=== PATIENT | female | born 1960 | race Caucasian/White ===

== ENCOUNTER → 2022-11-03 | Outpatient (CLI) | payer MEDICAID, SELFPAY ==
[2022-11-03 14:51] LABS: BNP,B-Type NATRIURETIC PEPTIDE 38.7 pg/mL (0-100)
== END | disposition home or self-care (01) ==
DX: R60.0 Localized edema (principal)
CPT/HCPCS: 83880

== ENCOUNTER 2022-11-30 08:47 | Outpatient (RCR) | payer MEDICAID, SELFPAY ==
[2022-11-30 09:17] VITALS: BP 148/69; PULSE 114; RESP 16; TEMP 36; BMI 28.7
--- NOTE | 2022-11-30 09:41 | WC ---
PER PT, SHE TAKES NO MEDS.
--- NOTE | 2022-11-30 12:38 | HP.PCM_ITS ---
History of Present Illness Date of Service: 11/30/22 Chief Complaint: Bilateral lower extremity ulcers History of Wound: is a 62-year-old who presents to the wound center due to nonhealing bilateral lower extremity ulcers. She believes that it started in September. No known precipitating factor. 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 She has had some seepage from the openings but did not keep it covered. She also states that her dogs come in contact with openings quite often. She was following up with her Nurse Practitioner, placed on some diuretics and has had some labs done. Has also been on some other medications without any significant improvement. She reports a history of borderline diabetes and she vapes's. Chronic bilateral lower extremity pain not worse than it has been. No chills, fever or otherwise feeling of unwell. [facility] Medical History (Updated 11/30/22 @ 12:[address] Sakshi Mcclure MD) Borderline type 2 diabetes mellitus Debility Ulcer of left lower extremity with fat layer exposed Ulcer of right lower extremity with fat layer exposed Venous insufficiency of both lower extremities Home Medications No Known/Unobtainable [No Known Home Medications] 07/20/17 [History Last Taken Unknown] Allergy/AdvReac Type Severity Reaction Status Date / Time codeine AdvReac Itching Verified 11/30/22 09:41 Social History Smoking Status: Current every day smoker ROS Constitutional Constitutional: Denies excessive sweating, fever(s), headache(s), night sweats or poor appetite Eyes Eyes: Denies burning, decreased night vision, discharge from eye(s), double vision, dry eyes, excessive blinking, exophthalmos or eye pain ENT HEENT: Denies halitosis, headache(s), hearing loss, hoarseness, lip swelling, mouth pain or mucositis Cardiovascular Cardiovascular: Reports edema, leg edema and leg ulcers; Denies claudication, cold extremities, diaphoresis, dizziness or pale mercado skin Respiratory/Chest Respiratory/Chest: Denies dry cough, dusky skin, excessive phlegm production, hemoptysis, hoarseness or inability to speak Gastrointestinal Gastrointestinal: Denies anorexia, chewing difficulty, coffee ground emesis, dry heaves, early satiety or hematemesis Genitourinary Genitourinary: Denies dysuria, flank pain or hematuria Musculoskeletal Musculoskeletal: Reports back pain, difficulty walking, extremity pain and joint pain; Denies tremors Integumentary Integumentary: Reports skin ulcer; Denies change in hair, furuncle, jaundice, nail changes or pruritus Neurologic Neurologic: Denies behavior changes, burning sensations, convulsions, disequilibrium, dizziness, focal weakness, memory loss or numbness Psychiatric Psychiatric: Denies auditory hallucinations, behavioral changes, cognitive impairment, hallucinations, homicidal ideation, hopelessness, irritability or memory loss Endocrine Endocrinology: Denies change in body appearance, deepening of the voice, excessive sweating, heat intolerance or increase in ring/shoe/hat size Vital Signs Vital Signs Vital Signs: 11/30/22 09:17 Temperature 96.8 F L Temperature Source Temporal Pulse Rate 114 H Respiratory Rate 16 Blood Pressure 148/69 H Blood Pressure Mean 95 Blood Pressure Source Monitor Blood Pressure Position Sitting Blood Pressure Location Left Arm Oxygen Delivery Method Room Air Weight Weight: 178 lb Body Mass Index (BMI) 28.7 Physical Exam Const alert, oriented x3 and no apparent distress General Appearance: cooperative and comfortable HEENT normocephalic, head/scalp atraumatic and hearing grossly normal bilaterally Eyes EOMs intact bilaterally Neck full ROM and supple General: normal visual inspection Resp normal respiratory effort and normal air movement Effort and Inspection: able to speak in complete sentences Cardio regular rate, regular rhythm, S1 normal heart sound and S2 normal heart sound GI soft to palpation and non-tender Extremity General Extremity: edema Skin General Skin Exam: erythema Wounds: wounds noted Neuro oriented x3, CN's II-XII intact bilaterally and moves all extremities Psych mental status grossly normal, thought process normal, cooperative and affect normal Debridement Note Debridement Note Wound debrided: Right lower extremity cluster Type of Debridement: Excisional debridement Anesthesia Used: 4% Lidocaine Solution Depth: Down to and including healthy tissue and in the subcutaneous layer Percentage of wound debrided: 100 Instrument Used: 7mm curette, #15 blade and Forceps Tissue Removed: Slough and devitalized tissue Severity: Fat Layer Exposed Amount of bleeding with debridement: Mild Bleeding Controlled with: Pressure Patient tolerated procedure: Patient tolerated procedure well Post-Debridement Measurements and Additional Note: Post-Debridement Measurements/Treatment CANDE - Nurse 1 - General Ulcer Assessment Start: 11/30/22 09:09 Freq: Status: Active Protocol: CHELSI Activity Type Activity Date Activity User E-sign Co-sign Detail Recorded Client Recorded Date Recorded By Document 11/30/22 09:17 [facility] [id number] 11/30/22 09:36 [facility] 11/30/22 09:17 WC - Today's Visit Information Type of service Initial Visit Arrival Mode Ambulatory Transfer Assistance None Patient Identification Verified (Name & Yes ) Patient Requires Transmission-Based No Precautions Height and Weight Height 5 ft 6 in Weight 178 lb Weight in Pounds 178.0 lbs Weight Measurement Method Estimated by Patient Body Mass Index (BMI) 28.7 BMI Classification Overweight BSA - Danilo 1.90 Vital Signs Temperature (97.8 F-99.1 F) 96.8 F L Temperature Source Temporal Pulse Rate (60-100) 114 H Pulse Location Monitor Respiratory Rate (12-18) 16 Respiratory rate source Observation Oxygen Delivery Method Room Air Blood Pressure (90/60-120/80) 148/69 H Blood Pressure Mean 95 Source Monitor Position Sitting Blood Pressure Location Left Arm History Since Last Visit- (Skip if this is Patient's initial visit) Left Footwear Regular Shoe Right Footwear Regular Shoe Pain Scale: 0-10 Numeric Is Patient Pain Free? Yes Lower Extremity Assessment/ Foot Assessment/ Toe Nail Assessment Right -Posterior Tibial Doppler Multiphasic -Dorsalis Pedis Doppler Multiphasic -Extremity Color Red, Hyperpigmented -Hair Growth on Legs Yes -Hair Growth on Toes No -Temperature of Extremity Warm -Capillary Refill Less than 3 Seconds -Thick Yes -Discolored Yes -Deformed Yes Left -Lower Extremity Comment (If N/A Above PAINFUL TO ) DOPPLER L POST TIB D/T NEARBY WOUND. -Posterior Tibial Doppler Inaudible -Dorsalis Pedis Doppler Monophasic -Extremity Color Red, Hyperpigmented -Hair Growth on Legs Yes -Hair Growth on Toes No -Temperature of Extremity Warm -Capillary Refill Less than 3 Seconds -Other Deformity No -Prior Foot Ulcer No -Charcot Joint No -Prior Amputation No -Thick Yes -Discolored Yes -Deformed Yes -Improper Length & Hygeine Yes Communication Assessment Preferred language Georgian [employer] Machine [employer]er Required No Able to Read Yes Able to Write Yes Communication Tools None Right Hearing Abillity Normal Left Hearing Abillity Normal Visual Assistive Devices Glasses Teaching Assessment Preferences Verbal,Written, Audio/Visual, Demonstration Barriers to Learning None Readiness To Learn Excellent Willingness to Engage in Self Management High Activies Readiness to Engage in Self Management High Activities Anxiety Level Calm Cooperation Cooperative Perception Coherent Interest in Health Problem Asks Questions Education Importance Acknowledges Need Does Patient Smoke tobacco or other Yes substances Smoking Status Current every day smoker Is Patient Diabetic No Functional Assessment Recent Decline in Ability to Perform Denies Any Declines Culture/Congregation/[place] Cultural/Congregation Needs that may affect No Treatment Plan Teaching: Wound Center *Welcome to the Wound Center -Person Taught Patient -Teaching Method Discussion -Response to teaching Verbalize understanding Welcome to the Wound Care Center Georgian WC - Nurse 1 - General Ulcer Measurement Start: 11/30/22 09:09 Freq: Status: Active Protocol: Activity Type Activity Date Activity User E-sign Co-sign Detail Recorded Client Recorded Date Recorded By Document 11/30/22 09:17 [facility] [id number] 11/30/22 09:36 [facility] 11/30/22 09:17 Wound Center Nurse 1 #3- L MED ANKLE CLUSTER -Combined with other wound No -Current Size (cm) - Length 3 -Current Size (cm) - Width 9.5 -Current Size (cm) - Depth 0.1 -Total Square Cm 28.5 -Date of Last Picture (Recall this 11/30/22 field) -Photo Taken Yes -Epithelialization None Present -Tunneling No -Undermining/Tunneling No -Circular Undermining No -Exudate Amt Large -Exudate Type Serosanguineous -Wound Margin Distinct, Outline Attached -Granulation Amt None Present (0 %) -Slough/Fibrin Yes -Necrosis Amt Large (67-100%) -Necrotic Tissue Type Adherent Slough -Texture (Nasrin-wound Skin Appearance) Assessed, Excoriation, Scarring -Moisture (Nasrin-wound Skin Appearance) Assessed, Maceration -Color (Nasrin-wound Skin Appearance) Assessed, Erythema -Temperature (Nasrin-wound Skin No Abnormality Appearance) (Pt Warm) -Tenderness on Palpation (Nasrin-wound No Skin Appearance) -Ulcer Cleansing Soap and Water -Foul Odor after Cleansing No -Anesthetic Used 4% Lidocaine Solution #2- LLE CIRCUMFERENTIAL -Combined with other wound No -Current Size (cm) - Length 17 -Current Size (cm) - Width 28.5 -Current Size (cm) - Depth 0.1 -Total Square Cm 484.5 -Date of Last Picture (Recall this 11/30/22 field) -Photo Taken Yes -Epithelialization None Present -Tunneling No -Undermining/Tunneling No -Circular Undermining No -Exudate Amt Large -Exudate Type Serosanguineous -Wound Margin Distinct, Outline Attached -Granulation Amt Medium (34-66%) -Granulation Quality [place] -Slough/Fibrin Yes -Necrosis Amt Large (67-100%) -Necrotic Tissue Type Adherent Slough -Texture (Nasrin-wound Skin Appearance) Assessed, Excoriation, Scarring -Moisture (Nasrin-wound Skin Appearance) Assessed, Maceration -Color (Nasrin-wound Skin Appearance) Assessed, Erythema -Temperature (Nasrin-wound Skin No Abnormality Appearance) (Pt Warm) -Tenderness on Palpation (Nasrin-wound Yes Skin Appearance) -Ulcer Cleansing Soap and Water -Foul Odor after Cleansing No -Anesthetic Used 4% Lidocaine Solution #1- RLE CIRCUMFERENTIAL -Combined with other wound No -Current Size (cm) - Length 18.5 -Current Size (cm) - Width 31 -Current Size (cm) - Depth 0.1 -Total Square Cm 573.5 -Date of Last Picture (Recall this 11/30/22 field) -Photo Taken Yes -Epithelialization None Present -Tunneling No -Undermining/Tunneling No -Circular Undermining No -Exudate Amt Large -Exudate Type Serosanguineous -Wound Margin Distinct, Outline Attached -Granulation Amt Medium (34-66%) -Granulation Quality [place] -Necrosis Amt Large (67-100%) -Necrotic Tissue Type Adherent Slough -Texture (Nasrin-wound Skin Appearance) Assessed, Excoriation, Scarring -Moisture (Nasrin-wound Skin Appearance) Assessed, Maceration, Weeping -Color (Nasrin-wound Skin Appearance) Assessed, Erythema -Temperature (Nasrin-wound Skin No Abnormality Appearance) (Pt Warm) -Tenderness on Palpation (Nasrin-wound Yes Skin Appearance) -Ulcer Cleansing Soap and Water -Foul Odor after Cleansing No -Anesthetic Used 4% Lidocaine Solution Right Calf (cm) 39.8 Right Ankle (cm) 26.2 Right Foot (cm) 44.5 Left Calf (cm) 27.5 WC - Nurse 2 - General Ulcer CM Notes Start: 11/30/22 09:09 Freq: Status: Active Protocol: Activity Type Activity Date Activity User E-sign Co-sign Detail Recorded Client Recorded Date Recorded By Document 11/30/22 09:50 MW [id number] 11/30/22 10:13 MW 11/30/22 09:50 Wound Center Nurse 2 #3- L MED ANKLE CLUSTER -Time 09:51 -Correct Patient Yes -Correct Side, Site, Position Yes -Correct Procedure Yes -Procedure Performed No -Tunneling No #2- LLE CIRCUMFERENTIAL -Time 09:54 -Correct Patient Yes -Correct Side, Site, Position Yes -Correct Procedure Yes -Procedure Performed Yes -Type of Procedure Debridement -Clinical Debridement Subcutaneous -Tissue Removed Subcutaneous -Post Debridement (cm) - Length 13.0 -Post Debridement (cm) - Width 25.0 -Post Debridement (cm) - Depth 0.2 -Total Square (Post) (cm) 325.00 -Area of Debridement (cm) - Length 13.0 -Area of Debridement (cm) - Width 25.0 -Total Square (Area) (cm) 325.00 -Tunneling No -Undermining/Tunneling No -Circular Undermining No -Wound/Ulcer Outcome Not Healed -Ulcer Cleansing Rinsed/ Irrigated with Saline -Foul Odor after Cleansing No -Bleeding Controlled with Pressure -Treatment Response Procedure Tolerated Well -Offloading No -Debridement - Subq, 1st 20sq cm No #1- RLE CIRCUMFERENTIAL -Time 09:53 -Correct Patient Yes -Correct Side, Site, Position Yes -Correct Procedure Yes -Procedure Performed Yes -Type of Procedure Debridement -Clinical Debridement Subcutaneous -Tissue Removed Subcutaneous -Post Debridement (cm) - Length 16.0 -Post Debridement (cm) - Width 24.0 -Post Debridement (cm) - Depth 0.2 -Total Square (Post) (cm) 384.00 -Area of Debridement (cm) - Length 16.0 -Area of Debridement (cm) - Width 24.0 -Total Square (Area) (cm) 384.00 -Tunneling No -Undermining/Tunneling No -Circular Undermining No -Wound/Ulcer Outcome Not Healed -Ulcer Cleansing Rinsed/ Irrigated with Saline -Foul Odor after Cleansing No -Bioengineered Tissue No -Bleeding Controlled with Pressure -Treatment Response Procedure Tolerated Well -Offloading No -Debridement - Subq, 1st 20sq cm Yes Pain Scale: 0-10 Numeric Is Patient Pain Free? Yes WC - Nurse 3 - General Ulcer D/C NN Start: 11/30/22 09:09 Freq: Status: Active Protocol: Activity Type Activity Date Activity User E-sign Co-sign Detail Recorded Client Recorded Date Recorded By Document 11/30/22 10:39 BMF [id number] 11/30/22 10:41 BMF Edit Result 11/30/22 10:39 BMF (1) [id number] 11/30/22 10:47 BMF (1) #3- L MED ANKLE CLUSTER - Aquacel AG 4x4 4 => 8 - Optilok 8x12 2 => 4 11/30/22 10:39 Wound Care Center Nurse 3 #3- L MED ANKLE CLUSTER -Ulcer Cleansing Soap and Water -Foul Odor after Cleansing No -Primary Dressing Applied Aquacel AG 4x4, Optilok 8x12 -Primary Dressing Covered/Secured with Dry Gauze & Roll Gauze, Secured with Tape -Aquacel AG 4x4 8 -Optilok 8x12 4 #2- LLE CIRCUMFERENTIAL -Ulcer Cleansing Soap and Water -Foul Odor after Cleansing No -Primary Dressing Applied Aquacel AG 4x4, Optilok 8x12 -Primary Dressing Covered/Secured with Dry Gauze & Roll Gauze, Secured with Tape -Aquacel AG 4x4 0 -Optilok 8x12 0 #1- RLE CIRCUMFERENTIAL -Ulcer Cleansing Soap and Water -Foul Odor after Cleansing No -Primary Dressing Applied Aquacel AG 4x4, Optilok 8x12 -Aquacel AG 4x4 0 -Optilok 8x12 0 Treatment Response Procedure Tolerated Well Pain Scale: 0-10 Numeric Is Patient Pain Free? Yes WC - Visit Discharge Discharge Condition Stable Ambulatory Status Ambulatory,Cane Transportation Private Auto Additional Wound Wound debrided: Left lower extremity ( cluster ) Type of Debridement: Excisional debridement Anesthesia Used: 4% Lidocaine Solution Depth: Down to and including healthy tissue and in the subcutaneous layer Percentage of wound debrided: 100 Instrument Used: 5mm curette, 7mm curette, #15 blade and Forceps Tissue Removed: Slough and devitalized tissue Severity: Fat Layer Exposed Amount of bleeding with debridement: Mild Bleeding Controlled with: Pressure and Compression and gauze Patient tolerated procedure: Patient tolerated procedure well Charges/Coding Visit Charges Office Visits / Consults: [id number] OV L4 New Procedures Integumentary [id number]: [id number] Andria subq tissue 20 sq cm/< Add On Codes: [id number] Andria subq tissue add-on (x 35, additional square centimeter debrided, please refer to clinical note.) Assessment/Plan Assessment/Plan (1) Ulcer of left lower extremity with fat layer exposed: CODE(S): L97.922 - Non-pressure chronic ulcer of unspecified part of left lower leg with fat layer exposed (2) Ulcer of right lower extremity with fat layer exposed: CODE(S): L97.912 - Non-pressure chronic ulcer of unspecified part of right lower leg with fat layer exposed (3) Venous insufficiency of both lower extremities: CODE(S): I87.2 - Venous insufficiency (chronic) (peripheral) (4) Borderline type 2 diabetes mellitus: CODE(S): R73.03 - Prediabetes (5) Debility: CODE(S): R53.81 - Other malaise PLAN: Plan Debridement done as documented above, procedure tolerated for the most part. Significant slough bilaterally. Also significant bilateral lower extremity edema and drainage. Had no form of wound care since September. She states that she has been following up with her primary care provider and was put on diuretics with no significant improvement. Debridement done however still a good amount of slough. Patient in pain so debridement stopped. No cultures taken today, will attempt culture at next visit. Has had recent blood work done by her primary care provider, will request records and add additional labs if needed. Aquacel Ag to all ulcers, cover with superabsorbent dressing. Change daily to twice daily depending on drainage. She looks much older than her stated age and I am not sure she will be able to care for her wounds as well, order for home health placed. Optimal diabetes control, double layer Tubigrip for edema management, leg elevation and exercise as tolerated. Vitamin C, D and zinc also discussed, she voiced understanding. Follow-up for nurse visit in a week and with me in 2 weeks. Her questions were answered and she was advised to call if she has any further questions or concerns, she voiced understanding. This note was generated with [employer] software. It may contain incorrect words, spelling, and punctuation that were not noted in checking the note before signing.
--- NOTE | 2022-12-26 14:53 | WC ---
11/30/22 [facility] Initial
--- NOTE | 2022-12-26 14:54 | WC ---
11/30/22 [facility] Initial
--- NOTE | 2022-12-26 14:55 | WC ---
11/30/22 [facility] Initial
== END 2022-12-08 23:59 | disposition home or self-care (01) ==
LOC: WC 08:47
PROVIDERS: Visit Provider Internal Medicine
DX: L97.912 Non-pressure chronic ulcer of unspecified part of right lower leg with fat layer exposed (principal); L97.922 Non-pressure chronic ulcer of unspecified part of left lower leg with fat layer exposed; R53.81 Other malaise; F17.200 Nicotine dependence, unspecified, uncomplicated; I87.2 Venous insufficiency (chronic) (peripheral); M79.604 Pain in right leg; M79.605 Pain in left leg; R73.03 Prediabetes; G89.29 Other chronic pain; L90.5 Scar conditions and fibrosis of skin
CPT/HCPCS: 11042; 11045; 99213; G0463

== ENCOUNTER 2022-12-25 21:34 | Emergency (ER) | payer MEDICAID, SELFPAY ==
[2022-12-25 21:35] VITALS: BP 51/17
[2022-12-25 21:37] VITALS: TEMP 35.8; BMI 26.1
[2022-12-25 22:02] VITALS: BP 123/91; BP 51/17; RESP 16; RESP 6; O2SAT 94
--- NOTE | 2022-12-25 22:15 | EX.ED.DYSGE1 ---
HPI History of Present Illness Chief Complaint: Wound Informant: spouse/S.O., friend and EMS Onset/Context/Timing Onset: Days Context: Gradual Onset Timing: Continuous Current Severity: Severe Maximum Severity: Severe Narrative Narrative: 62-year-old female per the no past medical history on the history on the computer says she had a history of being diabetic. Per the via phone states she been sick for a week with nausea and vomiting. She kept getting weaker. Had not been recently hospitalized. Tonight she got to the point where she was unable to ambulate and he called squad. In route prior to the squad getting here they said initially she was speaking. Then she became unresponsive and she developed an abnormal cardiac rhythm. On arrival she has a sine wave. Patient was taken immediately to room 2. I was called in the room from seeing another patient. Patient was unresponsive. Nurses were unable to obtain any IV. We started CPR. Prior similar symptoms: No Recent Illness/Hospitalization: No PFSH PFS Medical History Borderline type 2 diabetes mellitus Debility Ulcer of left lower extremity with fat layer exposed Ulcer of right lower extremity with fat layer exposed Venous insufficiency of both lower extremities Home Medications No Known/Unobtainable [No Known Home Medications] 07/20/17 [History Last Taken Unknown] Allergy/AdvReac Type Severity Reaction Status Date / Time codeine AdvReac Itching Verified 12/25/22 21:35 Social History Smoking Status: Current every day smoker ROS ROS ED ROS Narrative Nausea and vomiting. Dark stool. Review of Systems ROS Unobtainable: Denies due to encephalopathy Constitutional Constitutional ED: Denies chills or fever(s) Eyes Eyes: Denies blurry vision ENT ENT ED: Denies ear pain Cardiovascular Cardiovascular: Denies chest pain Respiratory/Chest Respiratory/Chest: Denies cough or dyspnea Gastrointestinal Gastrointestinal: Reports melena; Denies abdominal pain Genitourinary Genitourinary ED: Denies dysuria Musculoskeletal Musculoskeletal: Denies arthralgias Integumentary Denies abscess Neurologic Neurologic: Denies headache(s) Endocrine Endocrinology: Denies cold intolerance Hematologic/Lymphatic Hematologic/Lymphatic: Reports none Allergic/Immunologic Allergic/Immunologic ED: Denies mouth swelling or tongue swelling EXAM Physical Exam Narrative Exam Narrative: 62-year-old female unresponsive. No palpable carotid or femoral pulse. Patient with agonal breathing. Unresponsive. Clinically looks ill. H EENT exam pupils are 3 mm bilaterally. Extremely dry mucous membranes. False teeth which are being removed. Neck nontender no lymphadenopathy. No JVD. Lungs with bagging coarse breath sounds in the bases. Heart PEA on the monitor with no pulses. Abdomen soft nondistended. Patient is covered with stool around her waist, external region in both lower extremities. Neurologically she is unresponsive. She is not moving her extremities. Const Vital Signs: 12/25/22 21:37 Temperature 96.5 F L Temperature Source Temporal Positive well nourished, well developed and unkempt; Negative for cachectic or contractures General Appearance ED: unkempt, well developed and pallor; Negative for cachectic, contractures, cyanotic, diaphoretic or NAD Nutritional Appearance: Negative for cachectic HEENT Reports dry mucous membranes Negative for trauma or tenderness Mouth ED: Yes dry mucous membranes Mouth: dry mucous membranes Eyes PERRL; Negative for EOMs intact bilaterally General Eye ED: Yes pale conjunctiva; Negative for scleral icterus Neck no lymphadenopathy, supple and no JVD General: Negative for tenderness Lymph Lymphatic: Negative for other Chest Wall inspection of chest normal and palpation of chest normal Resp No normal respiratory effort and No clear to auscultation bilaterally Resp Narrative: No respiratory effort. Intubated. Coarse breath sounds bilaterally. Effort and Inspection: Negative for retractions Auscultation: Negative for rales, rhonchi, wheezes or diminished lung sounds Cardio Negative for regular rate, regular rhythm, S1 normal heart sound, S2 normal heart sound or no murmurs Rate: other Other Details: PEA on the monitor. No palpable pulses. Rhythm: abnormal rhythm GI normal to inspection, nondistended, normoactive bowel sounds, non-tender, non-distended and no masses Inspection: Negative for abdominal distention Auscultation: Negative for normoactive bowel sounds Palpation: soft; Negative for tender or guarding Extremity Negative for normal to inspection Extremity Narrative: Wounds both lower extremities. 1+ pitting edema in the lower legs. Stool in her legs. No spontaneous movements. Neuro Neuro Narrative: Unresponsive to verbal or noxious stimuli. Psych Appearance: unkempt Skin no rashes or lesions noted Skin Narrative: Wounds on the lower extremities. Pale. Cool to the touch. General Skin Exam: pallor Wounds: wounds noted MDM MDM MDM Narrative Medical decision making narrative: 62-year-old brought in by squad. Reportedly nausea and vomiting for a week. Progressively worsening weakness. In route she developed a sine wave and coded on arrival. I was called to the room immediately. Patient was intubated using a curved blade and a 7/2 ET tube. Good color changes obtain. Good breath sounds. Around 24 at the lips. Nurses were unable to get any peripheral IVs so we placed 2 interosseous IVs in her right proximal medial tibia and her left proximal medial tibia. They had good flow. Patient was treated with epinephrine a total of 4 mg, 1 mg given every 3 minutes. CPR was continued. She was given calcium chloride x2 A in case this was was's from severe hyperkalemia. She was given an amp of D50. She was given 2 A of bicarb for suspected metabolic acidosis. And she was given IV fluids. Patient had no response. We coded her for approximately 17 minutes. She never improved or had any significant response. On ultrasound she had PEA after multiple rounds of epinephrine. I pronounced the patient at 10:01 PM. I spoke to her friend in the waiting room and her via phone. Procedures Intubations Intubation Method: orotracheal Intubation Verification: Positive color change and Bilateral breath sounds confirmed Intubation Complications: no complications Other Procedures Procedure(s): Interosseous peripheral lines were placed in both proximal, medial tibias. Critical Care Time Critical Care Time: Yes Critical care time (excluding procedures): Including time spent:, Discussing w/Patient &/or Family/Lead Infrastructure Architect, Discussing w/Consultants, Arranging Admission or Transfer, Performing Direct Patient Care at Bedside and - (25 min) Discharge Plan Triage Chief Complaint: Wound ED Provider: Chris Catalan Dx/Rx/DC Orders Clinical Impression: Nausea & vomiting, Cardiopulmonary arrest, Acute dehydration, PEA (Pulseless electrical activity), Patient pronounced Prescriptions: No Action No Known Home Medications Primary Care Provider: CHERI HOGAN Referrals: CHERI HOGAN [Other] Disposition Disposition:
--- NOTE | 2022-12-25 23:15 | ED.RN ---
Dr Catalan and this RN spoke with family friend in the waiting room after time of . He gave us the contact information for the patients , Aly. Dr Catalan spoke with Aly on the phone and notified him of patients , Dr Catalan answered all questions. Aly states he was calling the children. Patients 2 daughter arrive around 2300 to see patient, they are unsure of home as is patients spouse. They are instructed to call the ED when the decision is made. Patient only had partial dentures and gold kanchan ring on left ring finger. Daughter wanted to take ring home and signed the belongings form. They request the dentures go with patient to home.
== END 2022-12-25 23:50 ==
PROVIDERS: Emergency Provider Emergency Medicine; Visit Provider Emergency Medicine
DX: R11.2 Nausea with vomiting, unspecified (principal); I46.9 Cardiac arrest, cause unspecified; E11.9 Type 2 diabetes mellitus without complications; E86.0 Dehydration; F17.200 Nicotine dependence, unspecified, uncomplicated; E87.5 Hyperkalemia; K92.1 Melena
CPT/HCPCS: 31500; 92950; 99282; J7030; A4216